=== PATIENT | female | born 1955 | race African-American/Black ===

== ENCOUNTER 2023-06-24 21:53 | Emergency (ER) | payer MEDICARE ==
[~2023-06-24] VITALS: Ht 160 cm; Wt 65.0 kg
[2023-06-24 21:57] VITALS: BP 134/101; PULSE 79; RESP 16; TEMP 98.2; O2SAT 98
[2023-06-25] MEDS ORDERED: ASPIRIN 81MG TABLET PO ONE (01:30)
== END 2023-06-25 01:30 | disposition left against medical advice (07) ==
LOC: ER 21:53
DX: R07.9 Chest pain, unspecified (principal)
CPT/HCPCS: 93005; 99283